=== PATIENT | male | born 1940 | race African-American/Black ===

== ENCOUNTER 2018-09-24 12:38 | Inpatient (IN) | payer MEDICARE ==
[~2018-09-24] VITALS: Ht 185.4 cm; Wt 72.6 kg
[~2018-09-24 12:38] MED LIST: ACHECK TEST; ASPI-1158 PO; CLOP75TA16 PO; INSU100V28 SUBCUT; LEVPEN SQ; PRED5DRO7 BOTHEYE
[2018-09-24] MEDS ORDERED: SODIUM CHLORIDE 0.9% 1000ML BAG (SEPSIS BOLUS) IV ONE (15:00)
[2018-09-24] MEDS ORDERED: VANCOMYCIN 1 G PREMIX 200 ML IV SCH (16:15)
[2018-09-24] MEDS ORDERED: PIPERACILLIN/TAZ 3.375G PREMIX 50 ML IV ONE (16:15)
[2018-09-24 16:29] LABS: BASOPHILS % 1.1 % (0.0-2.0); EOSINOPHILS % 2.9 % (0.0-5.0); HEMATOCRIT. 33.4 % (42.0-52.0); HEMOGLOBIN. 10.8 g/dL (14.0-18.0); LYMPHOCYTES % 29.3 % (20.0-50.0); MEAN CORPUSCULAR VOLUME 77.6 fL (80.0-94.0); MEAN PLATELET VOLUME 9.1 fl (7.4-10.4); MONOCYTES % 9.6 % (2.0-8.0); NEUTROPHILS % 57.1 % (40.0-76.0); PLATELET 253 x1000/uL (130-400); RED CELL DISTRIBUTION WIDTH 16.3 % (11.6-14.6)
[2018-09-24 16:32] LABS: CHLORIDE 104 mEq/L (98-107); INR 1.1; PROTHROMBIN TIME 10.6 sec (9.1-11.1)
[2018-09-24 20:00] VITALS: BP 122/95
[2018-09-24 22:30] VITALS: BP 122/92
[2018-09-24] MEDS ORDERED: DEXTROSE 50% WATER 50ML SYRINGE IV PRN (23:30)
[2018-09-24] MEDS ORDERED: ACETAMINOPHEN 325MG TABLET PO PRN (23:30)
[2018-09-25] VITALS: BP 122/92
[2018-09-25 04:00] VITALS: BP 131/88
[2018-09-25] MEDS: PIPERACILLIN/TAZ 3.375G PREMIX 50 ML IV SCH ×4 (04:57→22:07)
[2018-09-25] MEDS: VANCOMYCIN 1 G PREMIX 200 ML IV SCH ×2 (05:59→17:45)
[2018-09-25 06:20] LABS: EOSINOPHILS % 4.5 % (0.0-5.0); HEMATOCRIT. 31.8 % (42.0-52.0); HEMOGLOBIN. 10.2 g/dL (14.0-18.0); LYMPHOCYTES % 23.8 % (20.0-50.0); MEAN CORPUSCULAR HEMOGLOBIN 24.7 pg (28.0-32.0); MEAN CORPUSCULAR VOLUME 77.2 fL (80.0-94.0); MEAN PLATELET VOLUME 9.6 fl (7.4-10.4); MONOCYTES % 12.2 % (2.0-8.0); NEUTROPHILS % 58.5 % (40.0-76.0); PLATELET 246 x1000/uL (130-400); RED BLOOD CELL COUNT 4.12 mill/uL (4.7-6.1); RED CELL DISTRIBUTION WIDTH 16.1 % (11.6-14.6)
[2018-09-25 06:37] LABS: CHLORIDE 106 mEq/L (98-107)
[2018-09-25 06:57] LABS: PHOSPHORUS 3.1 mg/dL (2.5-4.9)
[2018-09-25] MEDS: INSULIN LISPRO 100 UNITS/ML SUBCUT SCH ×7 (07:20→21:00)
[2018-09-25] MEDS: BLOOD SUGAR DIAGNOSTIC STRIP TEST SCH ×4 (07:39→22:02)
[2018-09-25 08:28] VITALS: BP 133/86
[2018-09-25] MEDS: ASPIRIN 81MG EC TABLET PO SCH (09:00)
[2018-09-25] MEDS: ENOXAPARIN 40MG/0.4ML SYR SUBCUT SCH (09:00)
[2018-09-25] MEDS: CLOPIDOGREL 75MG TABLET PO SCH (09:00)
[2018-09-25 12:00] VITALS: BP 130/86
[2018-09-25 16:00] VITALS: BP 124/79
[2018-09-25 20:00] VITALS: BP 97/64
[2018-09-25] MEDS: INSULIN GLARGINE UD 100 UNITS/ML SYR SUBCUT SCH (22:00)
[2018-09-26] VITALS: BP 107/64
[2018-09-26 04:00] VITALS: BP 112/66
[2018-09-26] MEDS: PIPERACILLIN/TAZ 3.375G PREMIX 50 ML IV SCH ×4 (04:44→18:02)
[2018-09-26] MEDS: BLOOD SUGAR DIAGNOSTIC STRIP TEST SCH ×4 (07:01→21:07)
[2018-09-26] MEDS: VANCOMYCIN 1 G PREMIX 200 ML IV SCH ×2 (07:18→21:10)
[2018-09-26] MEDS: INSULIN LISPRO 100 UNITS/ML SUBCUT SCH ×7 (07:20→21:00)
[2018-09-26 08:00] VITALS: BP 111/69
[2018-09-26 08:11] LABS: EOSINOPHILS % 5.7 % (0.0-5.0); HEMATOCRIT. 33.9 % (42.0-52.0); HEMOGLOBIN. 10.7 g/dL (14.0-18.0); LYMPHOCYTES % 25.9 % (20.0-50.0); MEAN CORPUSCULAR HEMOGLOBIN 24.5 pg (28.0-32.0); MEAN CORPUSCULAR VOLUME 77.7 fL (80.0-94.0); MEAN PLATELET VOLUME 8.8 fl (7.4-10.4); MONOCYTES % 11.8 % (2.0-8.0); NEUTROPHILS % 55.6 % (40.0-76.0); PLATELET 242 x1000/uL (130-400); RED BLOOD CELL COUNT 4.37 mill/uL (4.7-6.1); RED CELL DISTRIBUTION WIDTH 16.1 % (11.6-14.6)
[2018-09-26 08:43] LABS: CHLORIDE 104 mEq/L (98-107)
[2018-09-26 09:00] LABS: PHOSPHORUS 3.2 mg/dL (2.5-4.9)
[2018-09-26] MEDS: ASPIRIN 81MG EC TABLET PO SCH (09:34)
[2018-09-26] MEDS: CLOPIDOGREL 75MG TABLET PO SCH (09:34)
[2018-09-26] MEDS: ENOXAPARIN 40MG/0.4ML SYR SUBCUT SCH (09:34)
[2018-09-26 12:00] VITALS: BP 117/74
[2018-09-26 16:00] VITALS: BP 113/68
[2018-09-26 20:00] VITALS: BP 100/61
[2018-09-26] MEDS: INSULIN GLARGINE UD 100 UNITS/ML SYR SUBCUT SCH (22:00)
[2018-09-27] VITALS: BP 112/66
[2018-09-27 04:00] VITALS: BP 110/68
[2018-09-27] MEDS: PIPERACILLIN/TAZ 3.375G PREMIX 50 ML IV SCH ×4 (06:20→23:54)
[2018-09-27] MEDS: BLOOD SUGAR DIAGNOSTIC STRIP TEST SCH ×4 (06:55→21:23)
[2018-09-27 08:00] VITALS: BP 108/74
[2018-09-27] MEDS: ENOXAPARIN 40MG/0.4ML SYR SUBCUT SCH (08:48)
[2018-09-27] MEDS: ASPIRIN 81MG EC TABLET PO SCH (08:49)
[2018-09-27] MEDS: CLOPIDOGREL 75MG TABLET PO SCH (08:49)
[2018-09-27] MEDS: VANCOMYCIN 1 G PREMIX 200 ML IV SCH (08:49)
[2018-09-27] MEDS: INSULIN LISPRO 100 UNITS/ML SUBCUT SCH ×7 (08:54→21:00)
[2018-09-27 10:53] LABS: CHLORIDE 102 mEq/L (98-107)
[2018-09-27 12:00] VITALS: BP 116/71
[2018-09-27 16:00] VITALS: BP 132/83
[2018-09-27 20:00] VITALS: BP 99/62
[2018-09-27] MEDS: INSULIN GLARGINE UD 100 UNITS/ML SYR SUBCUT SCH (21:42)
[2018-09-28] VITALS: BP 109/65
[2018-09-28] MEDS: VANCOMYCIN 1250MG in DEXTROSE 5% WATER 250ML IV SCH ×2 (03:40→21:56)
[2018-09-28 04:38] VITALS: BP 139/84
[2018-09-28] MEDS: PIPERACILLIN/TAZ 3.375G PREMIX 50 ML IV SCH ×3 (06:15→17:39)
[2018-09-28] MEDS: INSULIN LISPRO 100 UNITS/ML SUBCUT SCH ×7 (06:21→21:00)
[2018-09-28] MEDS: BLOOD SUGAR DIAGNOSTIC STRIP TEST SCH ×4 (06:28→21:56)
[2018-09-28 07:12] LABS: BASOPHILS % 0.7 % (0.0-2.0); EOSINOPHILS % 7.4 % (0.0-5.0); HEMATOCRIT. 33.9 % (42.0-52.0); HEMOGLOBIN. 10.8 g/dL (14.0-18.0); LYMPHOCYTES % 27.4 % (20.0-50.0); MEAN CORPUSCULAR HEMOGLOBIN 24.9 pg (28.0-32.0); MEAN CORPUSCULAR VOLUME 77.9 fL (80.0-94.0); MEAN PLATELET VOLUME 9.1 fl (7.4-10.4); MONOCYTES % 10.5 % (2.0-8.0); PLATELET 238 x1000/uL (130-400); RED BLOOD CELL COUNT 4.36 mill/uL (4.7-6.1)
[2018-09-28 07:26] LABS: CHLORIDE 105 mEq/L (98-107)
[2018-09-28 08:00] VITALS: BP 138/90
[2018-09-28] MEDS: ENOXAPARIN 40MG/0.4ML SYR SUBCUT SCH (08:32)
[2018-09-28] MEDS: ASPIRIN 81MG EC TABLET PO SCH (08:32)
[2018-09-28] MEDS: CLOPIDOGREL 75MG TABLET PO SCH (08:32)
[2018-09-28 12:00] VITALS: BP 114/76
[2018-09-28 16:00] VITALS: BP 112/70
[2018-09-28 20:00] VITALS: BP 111/59
[2018-09-28] MEDS: INSULIN GLARGINE UD 100 UNITS/ML SYR SUBCUT SCH (22:00)
[2018-09-29] VITALS: BP 113/71
[2018-09-29] MEDS: PIPERACILLIN/TAZ 3.375G PREMIX 50 ML IV SCH ×3 (00:46→12:02)
[2018-09-29 04:00] VITALS: BP 127/76
[2018-09-29] MEDS: INSULIN LISPRO 100 UNITS/ML SUBCUT SCH ×4 (07:50→13:25)
[2018-09-29] MEDS: BLOOD SUGAR DIAGNOSTIC STRIP TEST SCH ×2 (07:55→12:02)
[2018-09-29 08:00] VITALS: BP 126/80
[2018-09-29] MEDS: ENOXAPARIN 40MG/0.4ML SYR SUBCUT SCH (08:50)
[2018-09-29] MEDS: ASPIRIN 81MG EC TABLET PO SCH (08:50)
[2018-09-29] MEDS: CLOPIDOGREL 75MG TABLET PO SCH (08:50)
[2018-09-29 12:00] VITALS: BP 113/75
[2018-09-29 13:00] VITALS: BP 126/80
== END 2018-09-29 15:30 | disposition home health service (06) | DRG 629 ==
LOC: ER 12:38 → 6EST 16:46 → ENRESERV 17:53 → SUPCPDRO 21:34
PROVIDERS: ADMIT Internal Medicine; ATTEND Internal Medicine
PROC: 0QBP0ZZ Excision of Left Metatarsal, Open Approach (ICD-10-PCS; principal; 2018-09-27)
DX: E11.69 Type 2 diabetes mellitus with other specified complication (principal); M86.172 Other acute osteomyelitis, left ankle and foot; E11.621 Type 2 diabetes mellitus with foot ulcer; Z89.429 Acquired absence of other toe(s), unspecified side; L08.9 Local infection of the skin and subcutaneous tissue, unspecified; Z91.19 Patient's noncompliance with other medical treatment and regimen; E11.42 Type 2 diabetes mellitus with diabetic polyneuropathy; E11.610 Type 2 diabetes mellitus with diabetic neuropathic arthropathy; H91.90 Unspecified hearing loss, unspecified ear; I10 Essential (primary) hypertension; L97.529 Non-pressure chronic ulcer of other part of left foot with unspecified severity; Z79.4 Long term (current) use of insulin; Z87.891 Personal history of nicotine dependence; Z09 Encounter for follow-up examination after completed treatment for conditions other than malignant neoplasm; Z89.432 Acquired absence of left foot; F03.90 Unspecified dementia, unspecified severity, without behavioral disturbance, psychotic disturbance, mood disturbance, and anxiety
CPT/HCPCS: 36415; 71045; 73630; 80048; 80202; 82962; 83605; 83735; 84100; 84145; 85651; 86140; 87070; 87077; 87186; 93005; 96374; 99285; C1893; J1650; J1815; J2543; J3370; J7030; J7040; J7060

== ENCOUNTER 2019-06-16 11:13 | Inpatient (IN) | payer MEDICARE ==
[~2019-06-16] VITALS: Ht 185.4 cm; Wt 68.0 kg
[~2019-06-16 11:13] MED LIST changes: -CLOP75TA16 PO; +CLOP75TA4 PO
[2019-06-16] MEDS ORDERED: VANCOMYCIN 1 G PREMIX 200 ML IV ONE (12:00)
[2019-06-16] MEDS ORDERED: SODIUM CHLORIDE 0.9% 1000ML BAG (SEPSIS BOLUS) IV ONE (12:00)
[2019-06-16] MEDS ORDERED: PIPERACILLIN/TAZ 3.375G PREMIX 50 ML IV ONE (12:00)
[2019-06-16 12:24] LABS: BASOPHILS % 0.5 % (0.0-2.0); EOSINOPHILS % 0.4 % (0.0-5.0); HEMATOCRIT. 31.1 % (42.0-52.0); HEMOGLOBIN. 10.1 g/dL (14.0-18.0); LYMPHOCYTES % 7.3 % (20.0-50.0); MEAN CORPUSCULAR HEMOGLOBIN 25.8 pg (28.0-32.0); MEAN CORPUSCULAR VOLUME 79.5 fL (80.0-94.0); MEAN PLATELET VOLUME 9.9 fl (7.4-10.4); MONOCYTES % 7.3 % (2.0-8.0); NEUTROPHILS % 84.5 % (40.0-76.0); PLATELET 192 x1000/uL (130-400); RED BLOOD CELL COUNT 3.91 mill/uL (4.7-6.1); RED CELL DISTRIBUTION WIDTH 15.5 % (11.6-14.6)
[2019-06-16] MEDS ORDERED: PIPERACILLIN/TAZOBACTAM 3.375 G in DEXT 5% WATER 100 ML IV SCH (12:25)
[2019-06-16 12:27] LABS: CHLORIDE 105 mEq/L (98-107)
[2019-06-16 12:40] LABS: INR 1.1; PROTHROMBIN TIME 11.1 sec (9.6-11.0)
[2019-06-16 13:31] LABS: CLARITY URINE CLEAR (CLEAR); COLOR URINE YELLOW (YELLOW); KETONES URINE NEGATIVE (NEGATIVE); LEUKOCYTE ESTERASE URINE NEGATIVE (NEGATIVE); NITRITE URINE NEGATIVE (NEGATIVE); OCCULT BLOOD URINE NEGATIVE (NEGATIVE); PROTEIN URINE NEGATIVE (NEGATIVE); SPECIFIC GRAVITY URINE 1.011 (1.005-1.030); UROBILINOGEN URINE 0.2 E.U./dL (0.2-1.0)
[2019-06-16 17:00] VITALS: BP 153/87
[2019-06-16 17:30] VITALS: BP 153/87
[2019-06-16] MEDS ORDERED: DIPHENHYDRAMINE 50MG/ML VIAL IV PRN (18:00)
[2019-06-16] MEDS ORDERED: DEXTROSE 50% WATER 50ML SYRINGE IV PRN (18:00)
[2019-06-16] MEDS ORDERED: GUAIFENESIN 200MG/10ML SUGAR FREE UDC PO PRN (18:00)
[2019-06-16] MEDS ORDERED: PIPERACILLIN/TAZ 3.375G PREMIX 50 ML IV SCH (18:00)
[2019-06-16] MEDS ORDERED: CLONIDINE 0.1MG TABLET PO PRN (18:00)
[2019-06-16] MEDS ORDERED: ONDANSETRON HCL 4MG/2ML INJ IV PRN (18:00)
[2019-06-16] MEDS ORDERED: ACETAMINOPHEN 325MG TABLET PO PRN (18:00)
[2019-06-16] MEDS ORDERED: MAGNESIUM HYDROXIDE 400MG/5ML 30ML UDC PO PRN (18:00)
[2019-06-16] MEDS ORDERED: IPRATROPIUM/ALBUTEROL 0.5-3(2.5)MG/3ML NEB HHN PRN (18:00)
[2019-06-16] MEDS ORDERED: VANCOMYCIN 1 G PREMIX 200 ML IV SCH (18:00)
[2019-06-16] MEDS: ENOXAPARIN 40MG/0.4ML SYR SUBCUT SCH (20:00)
[2019-06-16 20:44] VITALS: BP 132/77
[2019-06-16] MEDS: BLOOD SUGAR DIAGNOSTIC STRIP TEST SCH (20:54)
[2019-06-16] MEDS: SODIUM CHLORIDE 0.9% INJ 3ML FLUSH IVF SCH (20:55)
[2019-06-16] MEDS ORDERED: TEMAZEPAM 15MG CAPSULE PO PRN (21:00)
[2019-06-16] MEDS: PIPERACILLIN/TAZOBACTAM 3.375 G in DEXT 5% WATER 100 ML IV SCH (21:45)
[2019-06-16] MEDS: INSULIN LISPRO 100 UNITS/ML SUBCUT SCH (21:47)
[2019-06-16] MEDS: INSULIN GLARGINE UD 100 UNITS/ML SYR SUBCUT SCH (21:48)
[2019-06-17] VITALS: BP 112/65
[2019-06-17] MEDS: PIPERACILLIN/TAZOBACTAM 3.375 G in DEXT 5% WATER 100 ML IV SCH ×4 (02:23→20:56)
[2019-06-17] MEDS: VANCOMYCIN 1500MG in DEXTROSE 5% WATER 250ML IV SCH ×2 (03:07→21:46)
[2019-06-17 04:00] VITALS: BP 128/75
[2019-06-17] MEDS: SODIUM CHLORIDE 0.9% INJ 3ML FLUSH IVF SCH ×3 (06:07→21:49)
[2019-06-17] MEDS: INSULIN LISPRO 100 UNITS/ML SUBCUT SCH ×4 (07:11→21:48)
[2019-06-17] MEDS: BLOOD SUGAR DIAGNOSTIC STRIP TEST SCH ×4 (07:11→21:49)
[2019-06-17] MEDS: ASPIRIN 81MG EC TABLET PO SCH (08:37)
[2019-06-17] MEDS: CLOPIDOGREL 75MG TABLET PO SCH (08:37)
[2019-06-17 11:00] VITALS: BP 105/72
[2019-06-17 16:00] VITALS: BP 147/71
[2019-06-17 20:20] VITALS: BP 102/53
[2019-06-17] MEDS: ENOXAPARIN 40MG/0.4ML SYR SUBCUT SCH (20:57)
[2019-06-17] MEDS: INSULIN GLARGINE UD 100 UNITS/ML SYR SUBCUT SCH (21:48)
[2019-06-18 00:33] VITALS: BP 108/57
[2019-06-18] MEDS: PIPERACILLIN/TAZOBACTAM 3.375 G in DEXT 5% WATER 100 ML IV SCH ×4 (01:50→20:18)
[2019-06-18 04:00] VITALS: BP 125/64
[2019-06-18] MEDS: SODIUM CHLORIDE 0.9% INJ 3ML FLUSH IVF SCH ×3 (05:30→21:21)
[2019-06-18 06:52] LABS: HEMATOCRIT. 30.4 % (42.0-52.0); HEMOGLOBIN. 9.7 g/dL (14.0-18.0); MEAN CORPUSCULAR HEMOGLOBIN 25.6 pg (28.0-32.0); MEAN CORPUSCULAR VOLUME 80.2 fL (80.0-94.0); MEAN PLATELET VOLUME 9.7 fl (7.4-10.4); PLATELET 159 x1000/uL (130-400); RED BLOOD CELL COUNT 3.79 mill/uL (4.7-6.1); RED CELL DISTRIBUTION WIDTH 15.6 % (11.6-14.6)
[2019-06-18] MEDS: BLOOD SUGAR DIAGNOSTIC STRIP TEST SCH ×4 (06:55→20:19)
[2019-06-18] MEDS: INSULIN LISPRO 100 UNITS/ML SUBCUT SCH ×4 (06:55→21:22)
[2019-06-18 07:03] LABS: CHLORIDE 106 mEq/L (98-107)
[2019-06-18 07:12] LABS: CREATINE KINASE 40 IU/L (39-308)
[2019-06-18 08:00] VITALS: BP 137/79
[2019-06-18] MEDS: CLOPIDOGREL 75MG TABLET PO SCH (09:37)
[2019-06-18] MEDS: ASPIRIN 81MG EC TABLET PO SCH (09:37)
[2019-06-18 11:34] LABS: PLATELET ESTIMATE NORMAL
[2019-06-18] MEDS: SILVER SULFADIAZINE 1% CREAM 25GM TOP SCH (11:50)
[2019-06-18 12:00] VITALS: BP 126/84
[2019-06-18] MEDS: VANCOMYCIN 1500MG in DEXTROSE 5% WATER 250ML IV SCH ×2 (13:28→13:33)
[2019-06-18 16:00] VITALS: BP 135/70
[2019-06-18] MEDS: ENOXAPARIN 40MG/0.4ML SYR SUBCUT SCH (20:19)
[2019-06-18 20:27] VITALS: BP 130/74
[2019-06-18] MEDS: INSULIN GLARGINE UD 100 UNITS/ML SYR SUBCUT SCH (21:22)
[2019-06-19 00:35] VITALS: BP 131/77
[2019-06-19] MEDS: PIPERACILLIN/TAZOBACTAM 3.375 G in DEXT 5% WATER 100 ML IV SCH ×3 (02:12→13:29)
[2019-06-19 04:22] VITALS: BP 130/79
[2019-06-19] MEDS: SODIUM CHLORIDE 0.9% INJ 3ML FLUSH IVF SCH ×3 (05:49→21:06)
[2019-06-19] MEDS: BLOOD SUGAR DIAGNOSTIC STRIP TEST SCH ×4 (06:23→20:28)
[2019-06-19] MEDS: INSULIN LISPRO 100 UNITS/ML SUBCUT SCH ×4 (07:03→20:29)
[2019-06-19 08:00] VITALS: BP 126/71
[2019-06-19] MEDS: CLOPIDOGREL 75MG TABLET PO SCH (08:18)
[2019-06-19] MEDS: ASPIRIN 81MG EC TABLET PO SCH (08:18)
[2019-06-19] MEDS: VANCOMYCIN 1500MG in DEXTROSE 5% WATER 250ML IV SCH (08:19)
[2019-06-19] MEDS: SILVER SULFADIAZINE 1% CREAM 25GM TOP SCH (08:19)
[2019-06-19 12:00] VITALS: BP 155/73
[2019-06-19 16:00] VITALS: BP 145/85
[2019-06-19] MEDS: CEFEPIME 1,000 MG in DEXTROSE 5% WATER 50 ML IV SCH (17:37)
[2019-06-19 20:00] VITALS: BP 136/81
[2019-06-19] MEDS: ENOXAPARIN 40MG/0.4ML SYR SUBCUT SCH (20:28)
[2019-06-19] MEDS: METRONIDAZOLE 500MG TABLET PO SCH (20:28)
[2019-06-19] MEDS: INSULIN GLARGINE UD 100 UNITS/ML SYR SUBCUT SCH (21:06)
[2019-06-20] VITALS: BP 108/72
[2019-06-20] MEDS: CEFEPIME 1,000 MG in DEXTROSE 5% WATER 50 ML IV SCH ×2 (02:23→14:28)
[2019-06-20 04:00] VITALS: BP 109/65
[2019-06-20] MEDS: SODIUM CHLORIDE 0.9% INJ 3ML FLUSH IVF SCH ×2 (05:04→14:27)
[2019-06-20] MEDS: BLOOD SUGAR DIAGNOSTIC STRIP TEST SCH ×2 (06:35→12:20)
[2019-06-20] MEDS: INSULIN LISPRO 100 UNITS/ML SUBCUT SCH ×2 (07:50→12:50)
[2019-06-20 08:00] VITALS: BP 133/86
[2019-06-20] MEDS ORDERED: LIDOCAINE HCL 1% 20ML VIAL (Pyxis) INJ ONE (08:07)
[2019-06-20] MEDS ORDERED: SODIUM BICARBONATE 4% (2.4MEQ) 5ML VIAL IV ONE (08:07)
[2019-06-20] MEDS: METRONIDAZOLE 500MG TABLET PO SCH (09:50)
[2019-06-20] MEDS: SILVER SULFADIAZINE 1% CREAM 25GM TOP SCH (09:50)
[2019-06-20] MEDS: ASPIRIN 81MG EC TABLET PO SCH (09:50)
[2019-06-20] MEDS: CLOPIDOGREL 75MG TABLET PO SCH (09:50)
[2019-06-20 12:00] VITALS: BP 116/61
[2019-06-20 15:06] VITALS: BP 116/61
== END 2019-06-20 16:42 | disposition home health service (06) | DRG 872 ==
LOC: ER 11:13 → 6WST 14:32 → EDBEDREQ 14:36 → EDBEDREQTM 14:36 → ENRESERV 15:55
PROVIDERS: ADMIT Internal Medicine; ATTEND Internal Medicine
PROC: 02HV33Z Insertion of Infusion Device into Superior Vena Cava, Percutaneous Approach (ICD-10-PCS; principal; 2019-06-20)
PROC: B5181ZA Fluoroscopy of Superior Vena Cava using Low Osmolar Contrast, Guidance (ICD-10-PCS; 2019-06-20)
PROC: B548ZZA Ultrasonography of Superior Vena Cava, Guidance (ICD-10-PCS; 2019-06-20)
DX: A41.9 Sepsis, unspecified organism (principal); L97.429 Non-pressure chronic ulcer of left heel and midfoot with unspecified severity; L03.116 Cellulitis of left lower limb; L97.419 Non-pressure chronic ulcer of right heel and midfoot with unspecified severity; M86.672 Other chronic osteomyelitis, left ankle and foot; E11.51 Type 2 diabetes mellitus with diabetic peripheral angiopathy without gangrene; E11.621 Type 2 diabetes mellitus with foot ulcer; E11.42 Type 2 diabetes mellitus with diabetic polyneuropathy; E11.610 Type 2 diabetes mellitus with diabetic neuropathic arthropathy; E11.69 Type 2 diabetes mellitus with other specified complication; L97.529 Non-pressure chronic ulcer of other part of left foot with unspecified severity; Z87.891 Personal history of nicotine dependence; Z89.421 Acquired absence of other right toe(s); Z79.82 Long term (current) use of aspirin; Z79.899 Other long term (current) drug therapy
CPT/HCPCS: 36415; 36573; 71045; 73630; 73721; 80048; 80202; 81003; 82550; 82962; 83605; 84145; 84484; 85651; 86140; 87070; 87077; 87186; 93005; 97162; 99285; C1725; J0692; J1650; J1815; J2543; J3370; J3490; J7030; J7040; J7060

== ENCOUNTER 2020-09-06 17:01 | Emergency (ER) | payer MEDICARE, MEDICAID ==
[~2020-09-06] VITALS: Ht 188 cm; Wt 82.0 kg
[~2020-09-06 17:01] MED LIST changes: -ASPI-1158 PO; +ASPI-1406 PO; +CLOP-31 PO; -CLOP75TA4 PO
[2020-09-06 17:03] VITALS: BP 115/77
== END 2020-09-06 22:16 | disposition home or self-care (01) ==
LOC: ER 17:01
DX: E11.65 Type 2 diabetes mellitus with hyperglycemia (principal); F03.90 Unspecified dementia, unspecified severity, without behavioral disturbance, psychotic disturbance, mood disturbance, and anxiety; Z79.4 Long term (current) use of insulin; Z98.890 Other specified postprocedural states
CPT/HCPCS: 82962; 99283